=== PATIENT | female | born 1940 | race African-American/Black ===

== ENCOUNTER 2017-01-17 18:43 | Emergency (ER) | payer MEDICARE, OTHER ==
[2017-01-17 19:23] LABS: #Basophils 0.1 thou/uL (0.0-0.2); #Eosinphils 0.2 thou/uL (0.0-0.7); #Lymphocytes 2.3 thou/uL (1.20-3.40); #Monocytes 0.4 thou/uL (0.11-0.59); %Basophils 1.3 % (0.0-1.0); %Eosinophils 4.6 % (0.0-10.0); %Lymphocytes 46.2 % (21.0-51.0); %Monocytes 7.6 % (0.0-10.0); %Neutrophils 40.3 % (42.0-75.0); Hemoglobin 11.1 g/dL (12.0-16.0); Mean Corpuscular HGB CONC 31.6 g/dL (32.0-36.0); Mean Corpuscular Hemoglobin 31.3 pg (27.0-31.0); Mean Platelet Volume 7.4 fL (7.4-10.4); Platelet Count 192 thou/uL (130-400); RBC Distribution Width 12.7 % (11.5-14.5); Red Blood Cell (RBC) Count 3.54 mill/uL (4.20-5.40); White Blood Cell (WBC) Count 4.9 thou/uL (4.8-10.8)
[2017-01-17 19:39] LABS: ALT (SGPT) 18 U/L (8-55); AST (SGOT) 18 U/L (5-34); Alkaline Phosphatase 74 U/L (40-150); Anion Gap 12 mmol/L (10-20); BUN (Urea Nitrogen) 19 mg/dL (9.8-20.1); Bilirubin, Total 0.5 mg/dL (0.2-1.2); Calc. Creatinine Clearance 0 mL/min (70-130); Calcium 9.8 mg/dL (7.8-10.44); Carbon Dioxide 26 mmol/L (23-31); Chloride 110 mmol/L (98-107); Estimated GFR-MDRD 58; Globulin 2.8 g/dL (2.4-3.5); Glucose 100 mg/dL (83-110); Potassium 4.3 mmol/L (3.5-5.1); Protein, Total 6.8 g/dL (6.0-8.3); Sodium 144 mmol/L (136-145)
[2017-01-17 19:41] LABS: CKMB 2.7 ng/mL (0-6.6); Troponin I Less than 0.010 ng/mL (< 0.028)
[2017-01-17] MEDS ORDERED: Ibuprofen 200 MG TAB ONE (19:51)
== END 2017-01-17 20:00 | disposition home or self-care (01) ==
LOC: BURERS 18:43
DX: S13.9XXA Sprain of joints and ligaments of unspecified parts of neck, initial encounter (principal); I25.2 Old myocardial infarction; X58.XXXA Exposure to other specified factors, initial encounter
CPT/HCPCS: 80053; 82553; 84484; 85025; 93005

== ENCOUNTER 2017-10-13 11:07 | Emergency (ER) | payer MEDICARE ==
[2017-10-13] MEDS ORDERED: Ondansetron HCl/PF 4 MG/2 ML Vial ONE (11:16)
--- NOTE | 2017-10-13 11:54 | RAD ---
TWO VIEW RIGHT HUMERUS SERIES: INDICATION: Injury. FINDINGS: There is abnormal location of the proximal humerus relative to the scapular glenoid compatible with a n anterior dislocation. There is slight cortical irregularity of the scapular glenoid which could re late to a mild impaction injury. IMPRESSION: 1. Anterior shoulder dislocation. 2. Slight cortical irregularity of the scapular glenoid which could relate to an associated impactio n injury. Followup imaging upon relocation recommended. POS: [facility]
[2017-10-13] MEDS ORDERED: Ketorolac Tromethamine 30 MG/ML VIAL ONE (12:31)
[2017-10-13] MEDS ORDERED: Fentanyl 100 MCG/2 ML VIAL ONE ×2 (13:03→13:36)
[2017-10-13] MEDS ORDERED: Midazolam HCl 2 mg/2 ml Vial ONE (13:34)
[2017-10-13] MEDS ORDERED: Naloxone HCl 0.4 mg/ml Vial ONE (14:05)
--- NOTE | 2017-10-13 14:08 | RAD ---
ONE VIEW RIGHT SHOULDER: HISTORY: Status post reduction. COMPARISON: 10/13/17 at 11:02 a.m. FINDINGS: Interval reduction of previously noted anterior-inferior dislocation of the humeral head with respect to the glenoid. No obvious fractures. IMPRESSION: Interval reduction. POS: [facility]
== END 2017-10-13 15:09 | disposition home or self-care (01) ==
LOC: BURERS 11:07
DX: S43.014A Anterior dislocation of right humerus, initial encounter (principal); S01.511A Laceration without foreign body of lip, initial encounter; I25.2 Old myocardial infarction; W18.30XA Fall on same level, unspecified, initial encounter
CPT/HCPCS: 23650; 94760; 96361; 96374; 96375; 99152; J1885; J2250; J2270; J2310; J2405; J3010

== ENCOUNTER 2019-04-08 11:27 | Emergency (ER) | payer MEDICARE ==
[2019-04-08] MEDS ORDERED: Dexamethasone 4 MG TAB ONE (11:55)
[2019-04-08] MEDS ORDERED: AMOXicillin 250 MG CAP ONE (11:55)
== END 2019-04-08 12:05 | disposition home or self-care (01) ==
LOC: BURERS 11:27
DX: J01.90 Acute sinusitis, unspecified (principal); R22.42 Localized swelling, mass and lump, left lower limb; I25.2 Old myocardial infarction
CPT/HCPCS: 99283; J8540

== ENCOUNTER 2020-05-17 13:08 | Emergency (ER) | payer MEDICARE ==
[2020-05-17] MEDS ORDERED: Dexamethasone 10 MG/ML VIAL ONE (14:25)
[2020-05-17 14:48] LABS: #Lymphocytes 0.8 thou/uL (1.20-3.40); #Monocytes 0.2 thou/uL (0.11-0.59); #Neutrophils 4.9 thou/uL (1.40-6.50); %Basophils 0.6 % (0.0-1.0); %Eosinophils 0.2 % (0.0-10.0); %Lymphocytes 13.4 % (21.0-51.0); %Neutrophils 81.8 % (42.0-75.0); Mean Corpuscular HGB CONC 33.2 g/dL (32.0-36.0); Mean Corpuscular Hemoglobin 30.7 pg (27.0-31.0); Mean Corpuscular Volume 92.5 fL (78.0-98.0); Mean Platelet Volume 7.1 fL (7.4-10.4); Platelet Count 179 thou/uL (130-400); RBC Distribution Width 12.2 % (11.5-14.5); Red Blood Cell (RBC) Count 3.92 mill/uL (4.20-5.40)
[2020-05-17 15:01] LABS: ALT (SGPT) 26 U/L (8-55); AST (SGOT) 27 U/L (5-34); Albumin 3.6 g/dL (3.4-4.8); Alkaline Phosphatase 63 U/L (40-110); Anion Gap 16 mmol/L (10-20); BUN (Urea Nitrogen) 32 mg/dL (9.8-20.1); Bilirubin, Total 1.1 mg/dL (0.2-1.2); Calc. Creatinine Clearance 0 mL/min (70-130); Calcium 8.7 mg/dL (7.8-10.44); Carbon Dioxide 21 mmol/L (23-31); Chloride 98 mmol/L (98-107); Globulin 3.2 g/dL (2.4-3.5); Glucose 103 mg/dL (83-110); Potassium 4.4 mmol/L (3.5-5.1); Protein, Total 6.8 g/dL (5.8-8.1); Sodium 131 mmol/L (136-145)
--- NOTE | 2020-05-17 18:56 | RAD ---
PORTABLE CHEST: Date: 05-17-2020 An AP portable film at 1459 is compared with a 01-22-18 study. FINDINGS: The heart is borderline in size. There are patchy pulmonary infiltrates, particularly in the lower lo bes bilaterally. Findings are a bit worse on the left than the right. The upper lobe vessels are not overly congested and there are no effusions. IMPRESSION: Interval development of patchy lower lobe infiltrates. In the proper clinical context, Covid should b e considered in the differential. POS: [facility]
== END 2020-05-17 16:06 | disposition home or self-care (01) ==
LOC: BURERS 13:08
DX: U07.1 COVID-19 (principal); J12.82 Pneumonia due to coronavirus disease 2019; I25.2 Old myocardial infarction
CPT/HCPCS: 36415; 71045; 80053; 83605; 84484; 85025; 87040; 93005; 94760; 96374; J1100

== ENCOUNTER 2020-05-20 12:03 | Emergency (ER) | payer MEDICARE ==
--- NOTE | 2020-05-20 17:30 | RAD ---
CHEST TWO VIEWS: 05/20/20 Comparison is made with the 05/17 portable film. As before, there are patchy infiltrates present throughout the lungs bilaterally, mostly in the lower halves. The coverage of the infiltrates in the lower lobes seem slightly greater today or at least slightly denser, than they were previously. There is some minor streaking in the upper lobes, but the findings are mainly confined to the lower chest. There are no effusions. An infectious etiology, suc h as COVID, is presumed. The heart remains normal in size. There is no vascular congestion or edema. IMPRESSION: Slight increase in basilar infiltrates in coverage and density since 05/17. The change is not dramatic, but it still shows slight worsening. POS: [facility]
== END 2020-05-20 13:30 | disposition home or self-care (01) ==
LOC: BURERS 12:03
DX: K20.80 Other esophagitis without bleeding (principal); I25.2 Old myocardial infarction
CPT/HCPCS: 71046

== ENCOUNTER 2020-08-12 21:09 | Emergency (ER) | payer MEDICARE | END 2020-08-12 21:53 | disposition home or self-care (01) | LOC: BURERS 21:09 | DX: Z71.1 Person with feared health complaint in whom no diagnosis is made (principal); I25.2 Old myocardial infarction | CPT/HCPCS: 99282 ==

== ENCOUNTER 2021-09-29 19:59 | Emergency (ER) | payer MEDICARE ==
[2021-09-29] MEDS ORDERED: traMADol HCl 50 MG TAB ONE (20:25)
[2021-09-29] MEDS ORDERED: Dexamethasone 4 MG TAB ONE (20:26)
== END 2021-09-29 20:45 | disposition home or self-care (01) ==
LOC: BURERS 19:59
DX: I10 Essential (primary) hypertension (principal); I25.2 Old myocardial infarction
CPT/HCPCS: 99283; J8540